=== PATIENT | male | born 1975 | race Caucasian/White ===

== ENCOUNTER 2017-04-06 19:36 | Observation (INO) | payer OTHER ==
[~2017-04-06] VITALS: Ht 177.8 cm; Wt 100.0 kg
[2017-04-06 20:26] LABS: HEMATOCRIT 39.2 % (38.0-50.0); MCH 28.7 PG (29.0-34.0); MCHC 32.1 G/DL (30.0-36.0); MCV 89.3 FL (86-99); RBC DIS.WIDTH-CV 14.6 % (11.8-14.6); RBC DIS.WIDTH-SD 48.5 % (39-53); RED BLOOD COUNT 4.39 M/uL (4.00-5.50)
[2017-04-06 20:36] LABS: CHLORIDE 100 mEq/L (99-109); SODIUM 138 mEq/L (136-147)
[2017-04-06 20:37] LABS: GLUCOSE 234 mg/dL (70-99)
[2017-04-06 20:39] LABS: ANION GAP 11 MEQ/L (2-14)
[2017-04-06 20:41] LABS: GFR ESTIMATE (CALCULATED) > 59 mL/min/
[2017-04-06 20:42] LABS: UREA NITROGEN (BUN) 10 mg/dL (9-23)
[2017-04-06 21:53] LABS: HEMATOLOGY COMMENT 1 SN; PLAT.SUFFICIENCY ADEQUATE; PLATELET COUNT 354 K/uL (156-360)
[2017-04-06 22:44] LABS: TROP-I INTERPRETATION NEGATIVE; TROPONIN-I < 0.01 ng/mL (0.0-0.30)
[2017-04-06 22:47] LABS: POINT-OF-CARE METER ID UU13113800
[2017-04-07] MEDS ORDERED: LIPITOR40 MG PO (04:32)
[2017-04-07] MEDS ORDERED: LISINOPRIL20 MG PO (04:33)
[2017-04-07] MEDS ORDERED: NOVOLOG 10100 UNITS/ SQ (04:34)
[2017-04-07] MEDS ORDERED: METFORMIN HCL1000 MG PO (04:36)
[2017-04-07] MEDS ORDERED: LEVEMIR100 UNIT/2 SC (04:36)
[2017-04-07] MEDS ORDERED: PROZAC20 MG PO (04:37)
[2017-04-07] MEDS ORDERED: LYRICA100 MG PO (04:37)
[2017-04-07] MEDS ORDERED: ULTRAM50 MG PO (04:38)
[2017-04-07] MEDS ORDERED: OXYCODONE HCL30 MG PO (04:39)
[2017-04-07] MEDS ORDERED: TANZEUM30 MG/0.5 SC (04:41)
[2017-04-07] MEDS ORDERED: RISPERDAL2 MG PO (04:42)
[2017-04-07] MEDS ORDERED: PRILOSEC20 MG PO (04:43)
[2017-04-07 05:35] LABS: CHLORIDE 100 mEq/L (99-109); MAGNESIUM 1.5 mg/dL (1.3-2.7); POTASSIUM 3.7 mEq/L (3.7-5.4); SODIUM 137 mEq/L (136-147)
[2017-04-07 05:37] LABS: GLUCOSE 215 mg/dL (70-99)
[2017-04-07 05:38] LABS: ANION GAP 11 MEQ/L (2-14)
[2017-04-07 05:39] LABS: TOTAL BILIRUBIN 0.4 mg/dL (0.0-1.0)
[2017-04-07 05:40] LABS: SERUM ETHYL ALCOHOL < 10 mg/dL
[2017-04-07 05:41] LABS: ALKALINE PHOSPHATASE 80 IU/L (3-129); GFR ESTIMATE (CALCULATED) > 59 mL/min/
[2017-04-07 05:42] LABS: UREA NITROGEN (BUN) 10 mg/dL (9-23)
[2017-04-07 05:48] LABS: BASOPHIL COUNT 0.1 K/uL (0-0.1); EOSINOPHIL (%) 2.4 % (0-5); EOSINOPHIL COUNT 0.2 K/uL (0-0.3); HEMATOCRIT 37.5 % (38.0-50.0); IMMATURE GRANULOCYTE (%) 0.3 % (0.0-0.7); INSTRUMENT ABS NEUTROPHIL CT 4.4 K/uL; LYMPHOCYTE COUNT 2.3 K/uL (1.0-2.8); MCHC 32.8 G/DL (30.0-36.0); MCV 88.4 FL (86-99); MEAN PLAT.VOLUME 10.2 uM^3 (9.0-12.4); MONOCYTE (%) 9.2 % (3-12); MONOCYTE COUNT 0.7 K/uL (0-0.8); NEUTROPHIL (%) 57.2 % (45-76); NEUTROPHIL COUNT 4.4 K/uL (1.8-6.4); PLATELET COUNT 347 K/uL (156-360); RBC DIS.WIDTH-CV 14.6 % (11.8-14.6); RBC DIS.WIDTH-SD 47.1 % (39-53); RED BLOOD COUNT 4.24 M/uL (4.00-5.50); WHITE BLOOD COUNT 7.7 K/uL (4.1-10.2)
[2017-04-07 05:52] LABS: CARBON DIOXIDE (BICARBONATE) 32.6 MEQ/L (20-31)
[2017-04-07 06:00] VITALS: BP 109/71
[2017-04-07 08:30] VITALS: BP 122/73
[2017-04-07] MEDS ORDERED: METFORMIN HCL500 MG PO (09:24)
[2017-04-07] MEDS ORDERED: ULTRAM ER100 MG PO (09:25)
[2017-04-07] MEDS ORDERED: CINNAMON500 MG PO (09:28)
[2017-04-07] MEDS ORDERED: ERGOCALCIF50000 UNIT PO (09:30)
[2017-04-07 11:58] VITALS: BP 119/73
[2017-04-07 12:09] LABS: AMPHETAMINES QUANT VALUE 0 NG/ML; BARBITUATES QUANT VALUE 0 NG/ML; BENZODIAZEPINES, URINE SCREEN POSITIVE (200 ng/mL); MARIJUANA QUANT VALUE 0 NG/ML; PHENCYCLIDINE QUANT VALUE 0 NG/ML
[2017-04-07 16:17] VITALS: BP 119/77
[2017-04-07 18:46] VITALS: BP 133/78
[2017-04-07 23:27] VITALS: BP 133/77
[2017-04-08 03:52] VITALS: BP 131/79
[2017-04-08 07:35] VITALS: BP 126/72
[2017-04-08 08:08] LABS: POINT-OF-CARE METER ID UU14162513
[2017-04-08 11:30] VITALS: BP 95/73
[2017-04-08] MEDS ORDERED: AUGMENTIN875 MG PO (12:32)
[2017-04-08] MEDS ORDERED: MEDROL DOSEPAK4 MG PO (12:32)
== END 2017-04-08 14:15 | disposition home or self-care (01) ==
LOC: EME 19:36 → 5WEST 04-07 04:26 → EDOF 04-07 04:26 → 5WEST 04-07 05:49
PROVIDERS: Physician Assistant; Physician Assistant Medical; Student in an Organized Health Care Education/Training Program
DX: J45.901 Unspecified asthma with (acute) exacerbation (principal); I44.0 Atrioventricular block, first degree; R51 Headache; E11.65 Type 2 diabetes mellitus with hyperglycemia; E11.40 Type 2 diabetes mellitus with diabetic neuropathy, unspecified; F11.20 Opioid dependence, uncomplicated; F10.21 Alcohol dependence, in remission; Z79.4 Long term (current) use of insulin; I10 Essential (primary) hypertension; E78.5 Hyperlipidemia, unspecified; Z86.73 Personal history of transient ischemic attack (TIA), and cerebral infarction without residual deficits; Z87.891 Personal history of nicotine dependence; Z91.14 Patient's other noncompliance with medication regimen; Z59.0 Homelessness; E66.9 Obesity, unspecified; Z68.35 Body mass index [BMI] 35.0-35.9, adult
CPT/HCPCS: 71020; 71250; 80048; 80053; 80306 90; 82803; 82948; 83735; 84484; 85025; 85027; 87070; 87205; 93005; 94640; 94640 76; 94644; 99202; 99281; 99284; G0378; G0480; J0696; J1650; J1815; J2930; J3475; J7030; J7050; S0030

== ENCOUNTER 2017-04-12 04:16 | Emergency (ER) | payer OTHER ==
[~2017-04-12] VITALS: Ht 167.6 cm; Wt 100.4 kg
[~2017-04-12 04:16] MED LIST: AUGMENTIN875 MG PO; CINNAMON500 MG PO; ERGOCALCIF50000 UNIT PO; LEVEMIR100 UNIT/2 SC; LIPITOR40 MG PO; LISINOPRIL20 MG PO; LYRICA100 MG PO; MEDROL DOSEPAK4 MG PO; METFORMIN HCL1000 MG PO; METFORMIN HCL500 MG PO; NOVOLOG 10100 UNITS/ SQ; OXYCODONE HCL30 MG PO; PRILOSEC20 MG PO; PROZAC20 MG PO; RISPERDAL2 MG PO; TANZEUM30 MG/0.5 SC; ULTRAM ER100 MG PO; ULTRAM50 MG PO
[2017-04-12 05:10] LABS: CARBON DIOXIDE (BICARBONATE) 29.3 MEQ/L (20-31)
[2017-04-12 05:23] LABS: CHLORIDE 92 mEq/L (99-109); SODIUM 132 mEq/L (136-147)
[2017-04-12 05:25] LABS: GLUCOSE 198 mg/dL (70-99)
[2017-04-12 05:26] LABS: ANION GAP 18 MEQ/L (2-14)
[2017-04-12 05:27] LABS: TOTAL BILIRUBIN 0.4 mg/dL (0.0-1.0)
[2017-04-12 05:28] LABS: HEMATOCRIT 40.8 % (38.0-50.0); MCH 28.3 PG (29.0-34.0); MCHC 32.8 G/DL (30.0-36.0); MCV 86.1 FL (86-99); MEAN PLAT.VOLUME 9.7 uM^3 (9.0-12.4); PLATELET COUNT 473 K/uL (156-360); RBC DIS.WIDTH-CV 13.5 % (11.8-14.6); RBC DIS.WIDTH-SD 42.7 % (39-53); RED BLOOD COUNT 4.74 M/uL (4.00-5.50); SERUM ETHYL ALCOHOL 12 mg/dL; WHITE BLOOD COUNT 7.5 K/uL (4.1-10.2)
[2017-04-12 05:29] LABS: ALKALINE PHOSPHATASE 92 IU/L (3-129); GFR ESTIMATE (CALCULATED) > 59 mL/min/
[2017-04-12 05:30] LABS: UREA NITROGEN (BUN) 19 mg/dL (9-23)
[2017-04-12 05:31] LABS: TROP-I INTERPRETATION NEGATIVE; TROPONIN-I < 0.01 ng/mL (0.0-0.30)
[2017-04-12 05:32] LABS: LIPASE 41 U/L (1.0-51.0)
[2017-04-12] MEDS ORDERED: NARCAN4 MG NS (07:16)
[2017-04-12 07:45] VITALS: BP 159/99
== END 2017-04-12 07:47 | disposition home or self-care (01) ==
LOC: EME 04:16
PROVIDERS: Emergency Medicine
DX: F11.23 Opioid dependence with withdrawal (principal); R07.89 Other chest pain; E11.9 Type 2 diabetes mellitus without complications; E78.5 Hyperlipidemia, unspecified; I10 Essential (primary) hypertension; Z79.4 Long term (current) use of insulin; Z79.84 Long term (current) use of oral hypoglycemic drugs
CPT/HCPCS: 71010; 80053; 81003; 82803; 83690; 84484; 85027; 93005; 99281; 99285; G0480; J2405; J7030

== ENCOUNTER 2017-05-27 01:53 | Emergency (ER) | payer OTHER ==
[~2017-05-27] VITALS: Ht 177.8 cm; Wt 106.2 kg
[~2017-05-27 01:53] MED LIST changes: +NARCAN4 MG NS
[2017-05-27 02:16] LABS: HEMATOCRIT 42.2 % (38.0-50.0); MCH 28.3 PG (29.0-34.0); MCHC 31.5 G/DL (30.0-36.0); MCV 89.8 FL (86-99); RBC DIS.WIDTH-CV 13.7 % (11.8-14.6); RBC DIS.WIDTH-SD 45.4 % (39-53); WHITE BLOOD COUNT 9.2 K/uL (4.1-10.2)
[2017-05-27 02:23] LABS: MEAN PLAT.VOLUME 10.4 uM^3 (9.0-12.4); PLATELET COUNT 334 K/uL (156-360)
[2017-05-27 02:29] LABS: CHLORIDE 100 mEq/L (99-109); POTASSIUM 4.6 mEq/L (3.7-5.4); SODIUM 137 mEq/L (136-147)
[2017-05-27 02:31] LABS: GLUCOSE 202 mg/dL (70-99)
[2017-05-27 02:32] LABS: ANION GAP 9 MEQ/L (2-14)
[2017-05-27 02:33] LABS: TOTAL BILIRUBIN 0.6 mg/dL (0.0-1.0)
[2017-05-27 02:35] LABS: ALKALINE PHOSPHATASE 102 IU/L (3-129); GFR ESTIMATE (CALCULATED) > 59 mL/min/
[2017-05-27 02:36] LABS: UREA NITROGEN (BUN) 17 mg/dL (9-23)
[2017-05-27 02:38] LABS: LIPASE 57 U/L (1.0-51.0)
[2017-05-27] MEDS ORDERED: REGLAN10 MG PO (05:45)
[2017-05-27] MEDS ORDERED: BENTYL10 MG PO (05:45)
[2017-05-27 06:12] VITALS: BP 124/88
== END 2017-05-27 06:14 | disposition home or self-care (01) ==
LOC: EXP 01:53 → EME 01:53 → EXP 06:14
DX: K52.9 Noninfective gastroenteritis and colitis, unspecified (principal); K85.90 Acute pancreatitis without necrosis or infection, unspecified; E11.9 Type 2 diabetes mellitus without complications; E78.5 Hyperlipidemia, unspecified; I10 Essential (primary) hypertension; Z79.4 Long term (current) use of insulin
CPT/HCPCS: 74176; 80053; 83690; 85027; 99281; 99284; J3010

== ENCOUNTER 2017-05-30 04:56 | Emergency (ER) | payer OTHER ==
[~2017-05-30] VITALS: Ht 177.8 cm; Wt 104.6 kg
[~2017-05-30 04:56] MED LIST changes: +BENTYL10 MG PO; +REGLAN10 MG PO
[2017-05-30 05:43] LABS: HEMATOCRIT 39.8 % (38.0-50.0); MCH 28.4 PG (29.0-34.0); MCHC 32.4 G/DL (30.0-36.0); MCV 87.7 FL (86-99); RBC DIS.WIDTH-CV 13.2 % (11.8-14.6); RBC DIS.WIDTH-SD 42.5 % (39-53); RED BLOOD COUNT 4.54 M/uL (4.00-5.50); WHITE BLOOD COUNT 9.7 K/uL (4.1-10.2)
[2017-05-30 05:55] LABS: CHLORIDE 100 mEq/L (99-109); POTASSIUM 4.1 mEq/L (3.7-5.4); SODIUM 140 mEq/L (136-147)
[2017-05-30 05:57] LABS: GLUCOSE 124 mg/dL (70-99)
[2017-05-30 05:59] LABS: ANION GAP 13 MEQ/L (2-14); TOTAL BILIRUBIN 0.3 mg/dL (0.0-1.0)
[2017-05-30 06:01] LABS: ALKALINE PHOSPHATASE 103 IU/L (3-129); GFR ESTIMATE (CALCULATED) > 59 mL/min/
[2017-05-30 06:02] LABS: UREA NITROGEN (BUN) 19 mg/dL (9-23)
[2017-05-30 06:49] LABS: MEAN PLAT.VOLUME 10.1 uM^3 (9.0-12.4); PLAT.SUFFICIENCY INCREASED; PLATELET COUNT 360 K/uL (156-360)
[2017-05-30 08:12] LABS: LIPASE 41 U/L (1.0-51.0)
[2017-05-30 08:25] VITALS: BP 127/85
== END 2017-05-30 08:31 | disposition home or self-care (01) ==
LOC: EME 04:56
DX: R10.10 Upper abdominal pain, unspecified (principal); E11.65 Type 2 diabetes mellitus with hyperglycemia; E78.5 Hyperlipidemia, unspecified; I10 Essential (primary) hypertension; Z79.84 Long term (current) use of oral hypoglycemic drugs
CPT/HCPCS: 80053; 81003; 83690; 85027; 99281; 99285; J2270; J2405; J7030

== ENCOUNTER 2017-06-24 11:58 | Emergency (ER) | payer SELFPAY ==
[~2017-06-24] VITALS: Ht 177.8 cm; Wt 106.7 kg
[2017-06-24] MEDS ORDERED: NAPROXEN500 MG PO (14:29)
[2017-06-24] MEDS ORDERED: FLEXERIL10 MG PO (14:29)
[2017-06-24 14:37] VITALS: BP 151/120
== END 2017-06-24 14:37 | disposition home or self-care (01) ==
LOC: RME 11:58 → EME 11:58 → RME 14:37
DX: M54.5 Low back pain (principal); M62.838 Other muscle spasm; R51 Headache; R11.0 Nausea; M43.17 Spondylolisthesis, lumbosacral region; W06.XXXA Fall from bed, initial encounter; Z72.0 Tobacco use
CPT/HCPCS: 72100; 99281; 99283; J1885

== ENCOUNTER 2017-06-29 07:50 | Emergency (ER) | payer OTHER ==
[~2017-06-29] VITALS: Ht 177.8 cm; Wt 101.9 kg
[~2017-06-29 07:50] MED LIST changes: +FLEXERIL10 MG PO; +NAPROXEN500 MG PO
[2017-06-29 08:06] LABS: POINT-OF-CARE METER ID UU13113778
[2017-06-29 08:25] LABS: MCH 28.1 PG (29.0-34.0); MCHC 33.2 G/DL (30.0-36.0); MCV 84.7 FL (86-99); MEAN PLAT.VOLUME 9.9 uM^3 (9.0-12.4); PLATELET COUNT 426 K/uL (156-360); RBC DIS.WIDTH-CV 13.5 % (11.8-14.6); RBC DIS.WIDTH-SD 42.2 % (39-53); RED BLOOD COUNT 4.84 M/uL (4.00-5.50); WHITE BLOOD COUNT 7.9 K/uL (4.1-10.2)
[2017-06-29 08:41] LABS: CHLORIDE 101 mEq/L (99-109); POTASSIUM 3.4 mEq/L (3.7-5.4); SODIUM 133 mEq/L (136-147)
[2017-06-29 08:43] LABS: GLUCOSE 339 mg/dL (70-99)
[2017-06-29 08:45] LABS: ANION GAP 8 MEQ/L (2-14); TOTAL BILIRUBIN 0.6 mg/dL (0.0-1.0)
[2017-06-29 08:47] LABS: ALKALINE PHOSPHATASE 105 IU/L (3-129); GFR ESTIMATE (CALCULATED) > 59 mL/min/
[2017-06-29 08:48] LABS: UREA NITROGEN (BUN) 14 mg/dL (9-23)
[2017-06-29 08:50] LABS: LIPASE 40 U/L (1.0-51.0)
[2017-06-29 09:03] LABS: TROP-I INTERPRETATION NEGATIVE; TROPONIN-I < 0.01 ng/mL (0.0-0.30)
[2017-06-29 09:15] LABS: POINT-OF-CARE METER ID UU13113702
[2017-06-29 11:38] VITALS: BP 103/71
== END 2017-06-29 11:38 | disposition home or self-care (01) ==
LOC: EME 07:50
PROVIDERS: Nurse Practitioner Family
DX: E11.65 Type 2 diabetes mellitus with hyperglycemia (principal); E86.0 Dehydration; E87.6 Hypokalemia; E78.5 Hyperlipidemia, unspecified; I10 Essential (primary) hypertension; I25.2 Old myocardial infarction; Z86.73 Personal history of transient ischemic attack (TIA), and cerebral infarction without residual deficits; Z79.4 Long term (current) use of insulin; Z79.84 Long term (current) use of oral hypoglycemic drugs; Z79.891 Long term (current) use of opiate analgesic
CPT/HCPCS: 80053; 81003; 82948; 83690; 84484; 85027; 93005; 99281; 99284; J1885; J7030

== ENCOUNTER 2017-07-15 20:04 | Emergency (ER) | payer OTHER ==
[~2017-07-15] VITALS: Ht 177.8 cm; Wt 105.7 kg
[2017-07-15 20:26] LABS: HEMATOCRIT 39.6 % (38.0-50.0); MCH 28.5 PG (29.0-34.0); MCHC 32.6 G/DL (30.0-36.0); MCV 87.4 FL (86-99); MEAN PLAT.VOLUME 10.2 uM^3 (9.0-12.4); PLATELET COUNT 367 K/uL (156-360); RBC DIS.WIDTH-CV 14.2 % (11.8-14.6); RED BLOOD COUNT 4.53 M/uL (4.00-5.50); WHITE BLOOD COUNT 8.8 K/uL (4.1-10.2)
[2017-07-15 20:39] LABS: CHLORIDE 95 mEq/L (99-109); POTASSIUM 4.1 mEq/L (3.7-5.4); SODIUM 133 mEq/L (136-147)
[2017-07-15 20:42] LABS: ANION GAP 12 MEQ/L (2-14)
[2017-07-15 20:43] LABS: TOTAL BILIRUBIN 0.3 mg/dL (0.0-1.0)
[2017-07-15 20:44] LABS: ALKALINE PHOSPHATASE 138 IU/L (3-129)
[2017-07-15 20:45] LABS: GFR ESTIMATE (CALCULATED) > 59 mL/min/
[2017-07-15 20:46] LABS: UREA NITROGEN (BUN) 16 mg/dL (9-23)
[2017-07-15 20:48] LABS: LIPASE 54 U/L (1.0-51.0)
[2017-07-15 20:58] LABS: GLUCOSE 564 mg/dL (70-99)
[2017-07-15 21:21] LABS: TROP-I INTERPRETATION NEGATIVE; TROPONIN-I < 0.01 ng/mL (0.0-0.30)
[2017-07-15 21:42] LABS: ADD MIUA? NO; BILIRUBIN NEGATIVE; BLOOD NEGATIVE; COLOR COLORLESS ((YELLOW)); GLUCOSE (STRIP) >=500; KETONES NEGATIVE; LEUKOCYTES NEGATIVE; NITRITE NEGATIVE; PROTEIN (STRIP) NEGATIVE; SPECIFIC GRAVITY 1.022 (1.000-1.030); UCUL ADDED? NO; UROBILINOGEN 0.2 MG/DL (0.2-1.0)
[2017-07-15 22:02] LABS: POINT-OF-CARE METER ID UU14100415
[2017-07-16 00:05] LABS: POINT-OF-CARE METER ID UU14100415
[2017-07-16 00:06] VITALS: BP 135/87
[2017-07-16 09:50] LABS: POINT-OF-CARE METER ID UU13113778
== END 2017-07-16 00:07 | disposition home or self-care (01) ==
LOC: EME 20:04
PROVIDERS: Emergency Medicine
DX: E11.65 Type 2 diabetes mellitus with hyperglycemia (principal); R10.10 Upper abdominal pain, unspecified; R07.89 Other chest pain; R11.0 Nausea; R00.0 Tachycardia, unspecified; R06.00 Dyspnea, unspecified; K40.90 Unilateral inguinal hernia, without obstruction or gangrene, not specified as recurrent; Q61.01 Congenital single renal cyst; Z90.81 Acquired absence of spleen; I10 Essential (primary) hypertension; E78.5 Hyperlipidemia, unspecified; Z79.4 Long term (current) use of insulin
CPT/HCPCS: 71020; 74177; 80053; 81003; 82948; 83690; 84484; 85027; 93005; 99281; 99285; J3010; J7030

== ENCOUNTER 2017-07-17 07:47 | Emergency (ER) | payer OTHER ==
[~2017-07-17] VITALS: Ht 177.8 cm; Wt 106.0 kg
[2017-07-17 08:30] LABS: POINT-OF-CARE METER ID UU13113702
[2017-07-17 08:47] LABS: HEMATOCRIT 39.4 % (38.0-50.0); MCHC 32.5 G/DL (30.0-36.0); MCV 86.2 FL (86-99); MEAN PLAT.VOLUME 10.2 uM^3 (9.0-12.4); PLATELET COUNT 347 K/uL (156-360); RBC DIS.WIDTH-CV 14.2 % (11.8-14.6); RBC DIS.WIDTH-SD 44.6 % (39-53); RED BLOOD COUNT 4.57 M/uL (4.00-5.50); WHITE BLOOD COUNT 7.9 K/uL (4.1-10.2)
[2017-07-17 09:22] LABS: ANION GAP 9 MEQ/L (2-14); CHLORIDE 102 MEQ/L (99-109); GFR ESTIMATE (CALCULATED) > 59 mL/min/; SAMPLE HEMOLYSIS CHECK 0; SAMPLE ICTERIC CHECK 0; SAMPLE LIPEMIA CHECK 0; SODIUM 139 MEQ/L (136-147); UREA NITROGEN (BUN) 14 mg/dL (9-23)
[2017-07-17 09:29] LABS: GLUCOSE 240 mg/dL (70-99)
[2017-07-17 10:33] LABS: TROP-I INTERPRETATION NEGATIVE; TROPONIN-I < 0.01 ng/mL (0.0-0.30)
[2017-07-17 12:48] LABS: TROP-I INTERPRETATION NEGATIVE; TROPONIN-I < 0.01 ng/mL (0.0-0.30)
[2017-07-17 13:32] VITALS: BP 123/91
== END 2017-07-17 13:34 | disposition home or self-care (01) ==
LOC: EME 07:47
PROVIDERS: Emergency Medicine
DX: R07.9 Chest pain, unspecified (principal); E11.65 Type 2 diabetes mellitus with hyperglycemia; J45.909 Unspecified asthma, uncomplicated; G47.30 Sleep apnea, unspecified; I10 Essential (primary) hypertension; E78.5 Hyperlipidemia, unspecified; I25.2 Old myocardial infarction; Z79.84 Long term (current) use of oral hypoglycemic drugs; Z79.4 Long term (current) use of insulin; Z86.73 Personal history of transient ischemic attack (TIA), and cerebral infarction without residual deficits; F17.200 Nicotine dependence, unspecified, uncomplicated
CPT/HCPCS: 71020; 80048; 82948; 84484; 85027; 93005; 99281; 99284; J7030